=== PATIENT | female | born 1990 | race African-American/Black ===

== ENCOUNTER 2017-11-21 20:33 | Emergency (ER) | payer OTHER ==
[2017-11-21 20:50] VITALS: BP 110/57; PULSE 82; TEMP 98.2; BMI 23.2
[2017-11-21] MEDS ORDERED: NEOMYCIN/POLYMYXN/HC OTIC SUSPENSION 10 ML BOTTLE AS ONE (21:41)
[2017-11-21] MEDS ORDERED: IBUPROFEN 600 MG TABLET (FP) PO ONE ×2 (21:41)
[2017-11-21] MEDS ORDERED: AMOXICILLIN 500 MG CAPSULE (FP) PO ONE (21:41)
[2017-11-21] MEDS ORDERED: AMOXICILLIN 250 MG CAPSULE ONE (21:42)
[2017-11-21] MEDS ORDERED: NEOMYCIN/POLYMYXN/HC OTIC SOLUTION 10 ML BOTTLE ONE (21:42)
--- NOTE | 2017-11-21 21:47 | PDOC ---
History of Present Illness - General Chief Complaint: Pain Stated Complaint: EAR INFECTION Time Seen by Provider: 11/21/17 20:47 History Source: Patient Exam Limitations: No Limitations - History of Present Illness Initial Comments: 11/21/17 21:42 Sent states use Q-tip to try to extract wax ear frequently but the past few days has had worsened pain, swelling, now with facial pain and feels has an ear infection. No fever, no dental injury, mild sore throat pain associated Occurred: reports: yesterday Severity: reports: moderate Pain Location: reports: face Associated Symptoms (Fall): headache Past History - Travel Traveled outside of the country in the last 30 days: No Close contact w/someone who was outside of country & ill: No - Past Medical History Allergies/Adverse Reactions: Allergies Allergy/AdvReac Type Severity Reaction Status Date / Time No Known Allergies Allergy Verified 11/21/17 20:47 Home Medications: Ambulatory Orders Amoxicillin - [Amoxicillin 500mg Capsule -] 500 mg PO TID #21 capsule 11/21/17 Ibuprofen [Motrin -] 400 mg PO QID PRN #28 tablet 11/21/17 COPD: No Other medical history: Pt denies - Suicide/Smoking/Psychosocial Hx Smoking History: Never smoked Have you smoked in the past 12 months: No Number of Cigarettes Smoked Daily: 0 Information on smoking cessation initiated: No Hx Alcohol Use: No Drug/Substance Use Hx: No Substance Use Type: None Review of Systems - Review of Systems Able to Perform ROS?: Yes Is the patient limited Slovenian proficient: Yes Constitutional: Yes: Symptoms Reported, See HPI, Chills, Fever, Malaise HEENTM: Yes: Symptoms Reported, See HPI, Ear Pain, Ear Discharge Respiratory: Yes: See HPI. No: Symptoms reported Neurological: Yes: Symptoms reported, See HPI, Headache All Other Systems: Reviewed and Negative *Physical Exam - Vital Signs Last Vital Signs Temp Pulse Resp BP Pulse Ox 98.2 F 82 20 110/57 97 11/21/17 20:48 11/21/17 20:48 11/21/17 20:48 11/21/17 20:48 11/21/17 20:48 - Physical Exam General Appearance: Yes: Nourished, Appropriately Dressed, Apparent Distress, Mild Distress HEENT: positive: VIV, Tonsillar Erythema, Rhinorrhea, TM Erythema. 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 We'll treat with by mouth amoxicillin, Cortisporin otic solution and Motrin *DC/Admit/Observation/Transfer Diagnosis at time of Disposition: Otitis externa of left ear Qualifiers: Otitis externa type: unspecified type Chronicity: acute Qualified Code(s): H60.502 - Unspecified acute noninfective otitis externa, left ear - Discharge Dispostion Disposition: HOME Condition at time of disposition: Stable Admit: No - Referrals - Patient Instructions Printed Discharge Instructions: DI for Otitis Externa Additional Instructions: Rest, lots of fluids; water, teas, soups Hot wet soaks to ear/hot packs may help relieve some pain May use [id number] anesthetic drops to ears to help relieve some pain Avoid getting water in ear, may use alcohol drops to help dry up any water retained in ears Severe using earplugs when swimming to avoid any water retention Continue ibuprofen or Tylenol for pain and fevers Cortisporin otic solution 3-5 drops 3 times a day for 5 days Amoxicillin 500 mg tablet 3 times a day for one week followup with private physician / ENT doctor in 2-3 days Return to emergency department or see private physician immediately for swelling , redness, from ears, or fevers, - Post Discharge Activity Forms/Work/School Notes: Back to Work
== END 2017-11-21 21:52 | disposition home or self-care (01) ==
LOC: JERFT 20:33
DX: H60.502 Unspecified acute noninfective otitis externa, left ear (principal)
CPT/HCPCS: 87070; 87430; 99281-25

== ENCOUNTER 2018-05-24 11:17 | Emergency (ER) | payer SELFPAY ==
[2018-05-24 11:22] VITALS: BP 97/56; PULSE 79; TEMP 98.1; BMI 23.2
--- NOTE | 2018-05-24 11:57 | PDOC ---
History of Present Illness - General Chief Complaint: Cold Symptoms Stated Complaint: SOB, COUGH, CHEST PAIN Time Seen by Provider: 05/24/18 11:50 - History of Present Illness Initial Comments: 27-year-old female presents for evaluation of cough which is wet but nonproductive and subjective fever and chills at home 2 days. She has no comorbidities 05/24/18 11:54 Past History - Past Medical History Allergies/Adverse Reactions: Allergies Allergy/AdvReac Type Severity Reaction Status Date / Time No Known Allergies Allergy Verified 05/24/18 11:22 Home Medications: Ambulatory Orders Azithromycin [Zithromax -] 250 mg PO UTDICT #6 tab 05/24/18 Guaifenesin [Robitussin] 5 ml PO HS #30 ml 05/24/18 COPD: No - Suicide/Smoking/Psychosocial Hx Smoking History: Never smoked Have you smoked in the past 12 months: No Number of Cigarettes Smoked Daily: 0 Hx Alcohol Use: No Drug/Substance Use Hx: No Substance Use Type: None Review of Systems - Review of Systems Constitutional: Yes: Fever, Malaise, Night Sweats Respiratory: Yes: Cough All Other Systems: Reviewed and Negative *Physical Exam - Vital Signs Last Vital Signs Temp Pulse Resp BP Pulse Ox 98.1 F 79 18 97/56 100 05/24/18 11:18 05/24/18 11:18 05/24/18 11:18 05/24/18 11:18 05/24/18 11:18 - Physical Exam Comments: HEAD: NC/AT EYES: Conjuntiva clear Ears: Canals and TM's normal NOSE: No d/c THROAT: Moist mucous membrances, oral pharanx clear, uvula midline NECK: Supple without adenopathy CARDIAC: S1 S2 LUNGS: CTA Full coarse rhonchi at the right base of the lung vivar are clear no expiratory wheezing ABDOMEN: Soft NT ND MS: Full ROM in all joints without edema NEUROLOGIC: No gross sensory or motor deficits, NVID SKIN: Normal color and temperature no lesions or rashes 05/24/18 11:55 Medical Decision Making - Medical Decision Making I will treat this bronchitis with Zithromax and Robitussin and have her follow- up with her primary care physician 05/24/18 11:55 *DC/Admit/Observation/Transfer Diagnosis at time of Disposition: Bronchitis - Discharge Dispostion Disposition: HOME Condition at time of disposition: Stable Decision to Admit order: No - Prescriptions Prescriptions: Azithromycin [Zithromax -] 250 mg PO UTDICT #6 tab Guaifenesin [Robitussin] 5 ml PO HS #30 ml - Referrals Referrals: Jhon Castellanos [Non Staff, Medical] - - Patient Instructions Printed Discharge Instructions: DI for Acute Bronchitis Additional Instructions: Follow-up with the primary care physician once 2 days for further evaluation and treatment options. Return to the emergency room should symptoms worsen or go unresolved. Please take the antibiotics as directed. It is a good idea to also include yogurt with active cultures to ease the stress on your belly. You may take tylenon and motrin as directed for any fever and aches you may have - Post Discharge Activity
== END 2018-05-24 12:06 | disposition home or self-care (01) ==
LOC: JERFT 11:17
DX: J40 Bronchitis, not specified as acute or chronic (principal)
CPT/HCPCS: 99281-25

== ENCOUNTER 2018-06-22 10:49 | Emergency (ER) | payer SELFPAY ==
[2018-06-22 10:56] VITALS: BP 105/59; PULSE 61; TEMP 98.4; BMI 22.2
--- NOTE | 2018-06-22 11:42 | PDOC ---
History of Present Illness - General Chief Complaint: Ear Problem Stated Complaint: EAR PAIN Time Seen by Provider: 06/22/18 11:01 - History of Present Illness Initial Comments: 06/22/18 11:35 CHIEF COMPLAINT: cough, ear pain HISTORY OF PRESENT ILLNESS: 27 yo F with no PMH presents to ED with left ear pain, sinus congestion, and cough. Patient reports she was seen a month ago for cough, which resolved, but the cough came back a few days ago. No recent travel or sick contacts. PAST MEDICAL HISTORY: Denies past medical history FAMILY HISTORY: Denies SOCIAL HISTORY: Denies tobacco, alcohol, illicit drug use. SURGICAL HISTORY: Denies ALLERGIES: No known drug allergies REVIEW OF SYSTEMS General/Constitutional: Denies fever or chills. Denies weakness, weight change. HEENT: L ear pain, sore throat. Denies change in vision. Cardiovascular: Denies chest pain or shortness of breath. Respiratory: Cough. Gastrointestinal: Nausea. Denies vomiting, diarrhea or constipation. Denies rectal bleeding. Genitourinary: Denies dysuria, frequency, or change in urination. Musculoskeletal: Denies joint or muscle swelling or pain. Denies neck or back pain. Skin and breasts: Denies rash or easy bruising. Neurologic: Denies headache, vertigo, loss of consciousness, or loss of sensation. PHYSICAL EXAM General Appearance: Well-appearing, appropriately dressed. No apparent distress. HEENT: Nasal congestion, post nasal drip appreciated. L ear with cerumen impaction, TM not visible. EOMI, PERRLA, normal voice. No conjunctival pallor. No photophobia, scleral icterus. Neck: Supple. Trachea midline. No tenderness, rigidity, carotid bruit, stridor , lymphadenopathy, or thyromegaly. Respiratory/Chest: Lungs CTAB. No shortness of breath, chest tenderness, respiratory distress, accessory muscle use. No crackles, rales, rhonchi, stridor , wheezing, dullness Cardiovascular: RRR. S1, S2. Gastrointestinal/Abdominal: Normal bowel sounds. Abdomen soft, non-distended. No tenderness or rebound tenderness. No organomegaly, pulsatile mass, guarding , hernia, hepatomegaly, splenomegaly. Lymphatic: No adenopathy, tenderness. Musculoskeletal/Extremities: Normal inspection. FROM of all extremities, normal capillary refill. Pelvis Stable. No CVA tenderness. No tenderness to extremities, pedal edema, swelling, erythema or deformity. Integumentary: Appropriate color, dry, warm. No cyanosis, erythema, jaundice or rash Neurologic: shank sorter II-XII intact. Fully oriented, alert. Appropriate mood/affect. Motor strength 5/5. No appreciable EOM palsy, facial droop or sensory deficit. Past History - Past Medical History Allergies/Adverse Reactions: Allergies Allergy/AdvReac Type Severity Reaction Status Date / Time No Known Allergies Allergy Verified 06/22/18 10:56 Home Medications: Ambulatory Orders Amoxicillin - [Amoxicillin 500mg Capsule -] 500 mg PO BID #14 capsule 06/22/18 Benzonatate [Tessalon Pearls -] 100 mg PO TID #21 capsule 06/22/18 COPD: No - Suicide/Smoking/Psychosocial Hx Smoking History: Never smoked Have you smoked in the past 12 months: No Number of Cigarettes Smoked Daily: 0 Hx Alcohol Use: No Drug/Substance Use Hx: No Substance Use Type: None *Physical Exam - Vital Signs Last Vital Signs Temp Pulse Resp BP Pulse Ox 98.4 F 61 18 105/59 L 99 06/22/18 10:51 06/22/18 10:51 06/22/18 10:51 06/22/18 10:51 06/22/18 10:51 ED Treatment Course - RADIOLOGY Radiology Studies Ordered: Category Date Time Status CHEST PA & LAT [RAD] Stat Radiology 06/22/18 11:15 Ordered Medical Decision Making - Medical Decision Making 06/22/18 11:42 27 yo F with no PMH presents to ED with left ear pain, sinus congestion, and cough. Ear irrigation completed, left ear with erythema to auditory canal. -CXR *DC/Admit/Observation/Transfer Diagnosis at time of Disposition: Excessive cerumen in left ear canal Otitis media Qualifiers: Otitis media type: unspecified Chronicity: acute Qualified Code(s): H66.90 - Otitis media, unspecified, unspecified ear Upper respiratory infection Qualifiers: URI type: unspecified viral URI Qualified Code(s): J06.9 - Acute upper respiratory infection, unspecified - Discharge Dispostion Disposition: HOME Condition at time of disposition: Stable Decision to Admit order: No - Prescriptions Prescriptions: Amoxicillin - [Amoxicillin 500mg Capsule -] 500 mg PO BID #14 capsule Benzonatate [Tessalon Pearls -] 100 mg PO TID #21 capsule - Referrals - Patient Instructions Printed Discharge Instructions: DI for Cerumen Impaction, Middle Ear Infection , DI for Viral Upper Respiratory Infection -- Adult Additional Instructions: Take medications as prescribed. Follow up with a primary care doctor if symptoms do not improve after 5-7 days. If you develop high fever unrelieved by Motrin or Tylenol, vomiting, diarrhea, or any new or worsening symptoms, please return to the ER immediately. - Post Discharge Activity Forms/Work/School Notes: Back to Work
== END 2018-06-22 12:17 | disposition home or self-care (01) ==
LOC: JERFT 10:49
PROC: 3E1B78Z Irrigation of Ear using Irrigating Substance, Via Natural or Artificial Opening (ICD-10-PCS; principal; 2018-06-22)
DX: J06.9 Acute upper respiratory infection, unspecified (principal); H69.92 Unspecified Eustachian tube disorder, left ear; H61.22 Impacted cerumen, left ear
CPT/HCPCS: 71046-TC-FY; 99281-25

== ENCOUNTER 2022-09-06 06:33 | Inpatient (IN) | payer OTHER ==
[2022-09-06] MEDS ORDERED: FENTANYL CITRATE/PF 50 MCG/ML VIAL ONE (08:00)
[2022-09-06] MEDS ORDERED: METHYLERGONOVINE MALEATE 0.2 MG/1 ML AMP IM PRN (09:25)
[2022-09-06] MEDS ORDERED: ACETAMINOPHEN 325 MG TABLET (FP) PO PRN (09:25)
[2022-09-06] MEDS ORDERED: BISACODYL 10 MG SUPP.RECT PR PRN (09:35)
[2022-09-06] MEDS ORDERED: ELECTROLYTE-148 SOLN 1,000 ML IV SCH (09:45)
[2022-09-06] MEDS: OXYTOCIN 20 UNITS in 0.9% NS 20 UNIT/1,000 ML INFUS.BAG IV SCH ×2 (09:50→18:23)
[2022-09-06 09:55] LABS: CORD BASE EXCESS -2.5 mmol/L (0-2); CORD HCO3 25.2 mmHg (20-29); CORD PCO2 54.7 mmHg (30-78); CORD pH 7.281 (7.14-7.44)
[2022-09-06 09:56] LABS: CORD BASE EXCESS -3.5 mmol/L (0-2); CORD HCO3 22.1 mmHg (20-29); CORD pH 7.339 (7.14-7.44)
[2022-09-06 10:53] VITALS: BMI 29.0
[2022-09-06 11:47] LABS: SYPHILIS W/ RPR CONF NON-REACTIVE (NONREACTIVE)
[2022-09-06 12:15] LABS: HIV INTERPRETATION NEGATIVE (NEGATIVE)
[2022-09-06] MEDS ORDERED: ACETAMINOPHEN 1000 MG/100 ML BAG IVPB PRN (14:00)
[2022-09-06] MEDS ORDERED: KETOROLAC TROMETHAMINE 30 MG/1 ML VIAL IVPUSH PRN (16:33)
[2022-09-06] MEDS ORDERED: DIPHTH,PERTUSS(ACELL),TET 0.5 ML DISP.SYRIN IM ONE (17:00)
[2022-09-06] MEDS: SIMETHICONE 80 MG TAB.CHEW (FP) PO PRN (20:31)
[2022-09-06] MEDS: IBUPROFEN 600 MG TABLET (FP) PO PRN (20:31)
[2022-09-06] MEDS ORDERED: oxyCODONE HCL 5 MG TABLET PO PRN (21:25)
[2022-09-06] MEDS: oxyCODONE HCL 5 MG TABLET PO PRN (23:44)
[2022-09-07] MEDS: IBUPROFEN 600 MG TABLET (FP) PO PRN ×4 (01:44→22:06)
[2022-09-07] MEDS: SIMETHICONE 80 MG TAB.CHEW (FP) PO PRN ×4 (01:45→19:38)
[2022-09-07] MEDS: oxyCODONE HCL 5 MG TABLET PO PRN ×3 (08:37→19:37)
[2022-09-07 08:41] VITALS: RESP 18
[2022-09-07 09:16] LABS: BASO % 0.5 % (0-2.0); EOS % 0.6 % (0-4.5); HEMATOCRIT 32.2 % (32.4-45.2); LYMPH % 19.6 % (8-40); MCH 34.4 pg (25.7-33.7); MCHC 34.1 g/dl (32.0-36.0); MEAN CELL VOLUME 100.9 fl (80-96); MEAN PLT VOLUME 8.9 fl (7.5-11.1); MONO % 8.1 % (3.8-10.2); NEUT % 71.2 % (42.8-82.8); PLATELET COUNT 233 10^3/uL (134-434); RBC 3.19 M/mm3 (3.60-5.2); RDW 13.4 % (11.6-15.6); WHITE BLOOD COUNT 14.5 K/mm3 (4.0-10.0)
[2022-09-07] MEDS ORDERED: BISACODYL 10 MG SUPP.RECT RC PRN (09:25)
[2022-09-07] MEDS ORDERED: DIPHTH,PERTUSS(ACELL),TET 0.5 ML DISP.SYRIN IM ONE (10:00)
[2022-09-08] MEDS: SIMETHICONE 80 MG TAB.CHEW (FP) PO PRN ×3 (01:33→10:48)
[2022-09-08] MEDS: oxyCODONE HCL 5 MG TABLET PO PRN ×3 (01:33→13:59)
[2022-09-08] MEDS: IBUPROFEN 600 MG TABLET (FP) PO PRN ×2 (04:13→10:47)
[2022-09-08] MEDS ORDERED: DIPHTH,PERTUSS(ACELL),TET 0.5 ML DISP.SYRIN IM ONE (10:00)
[2022-09-08 11:59] VITALS: BP 106/68; PULSE 85; TEMP 98
== END 2022-09-08 14:10 | disposition home or self-care (01) | DRG 540 ==
LOC: JLDR 06:33 → J3W 12:15
PROVIDERS: ADMIT Internal Medicine; ATTEND Internal Medicine
PROC: 10D00Z1 Extraction of Products of Conception, Low, Open Approach (ICD-10-PCS; principal; 2022-09-06)
DX: O34.211 Maternal care for low transverse scar from previous cesarean delivery (principal); Z3A.39 39 weeks gestation of pregnancy; Z37.0 Single live birth
CPT/HCPCS: 36415; 36600; 80053; 81003; 82803; 85025; 85610; 86780; 86850; 86900; 86901; 87389; 88307-TC; 90715; C9803-CS; U0003; U0005